=== PATIENT | female | born 1965 | race Caucasian/White ===

== ENCOUNTER → 2018-04-29 | Outpatient (CLI) | payer BC ==
--- NOTE | 2018-04-30 09:16 | RAD ---
Chest radiograph 04/29/2018 5:38 PM INDICATION: Cough for several weeks COMPARISON: Chest radiograph February 24, 2014 TECHNIQUE: Frontal and lateral views of the chest are provided. FINDINGS: The cardiomediastinal silhouette is within normal limits. There are no pleural effusions. There is no pulmonary vascular congestion. There is no pneumothorax. The lungs are clear. Dextroconvex scoliosis of the thoracic spine is noted. IMPRESSION: No acute cardiopulmonary process. Electronically signed by: Malissa Gonzalez MD (04/30/2018 9:12 AM) [facility]
== END | disposition home or self-care (01) ==
LOC: RAD 17:27
PROVIDERS: ATTEND Family Medicine
DX: M41.84 Other forms of scoliosis, thoracic region (principal)
CPT/HCPCS: 71046

== ENCOUNTER → 2021-02-06 | Outpatient (CLI) | payer BC, OTHER ==
--- NOTE | 2021-02-06 10:45 | RAD ---
INDICATION: Screening for osteopenia/osteoporosis. Postmenopausal evaluation. COMPARISON: None. TECHNIQUE: Bone densitometry was performed through the lumbar spine and proximal femur. IMPRESSION: Lumbar Spine: BMD: 1.29 T-Score: 0.9 Range: 1.1 Proximal Femur: BMD: 0.95 T-Score: -0.1 Range: Normal World Health Organization Criteria for Bone Density: T-Score: > -1.0: Normal Range < -1.0 to -2.5: Osteopenic Range < -2.5: Osteoporotic Range Electronically signed by: Edwin Wan MD (02/06/2021 10:43 AM) [id number]
--- NOTE | 2021-02-08 18:18 | RAD ---
DATE: 02/06/2021 EXAM: MAMMO CK SCREENING BILATERAL HISTORY: Screening COMPARISON: 09/27/2015 This study was interpreted with the benefit of Computerized Aided Detection (CAD). Breast Density: SCATTERED The breast parenchyma shows scattered fibroglandular densities. Breast parenchyma level B. FINDINGS: An asymmetry in the left breast along the posterior nipple line on MLO view is stable from 2015. No mass, suspicious calcification, or architectural distortion in either breast.. IMPRESSION: No evidence of malignancy. BI-RADS CATEGORY: 1 NEGATIVE RECOMMENDED FOLLOW-UP: 12M 12 MONTH FOLLOW-UP PQRS compliance statement: Patient information was entered into a reminder system with a target due date for the next mammogram. Mammography is a sensitive method for finding small breast cancers, but it does not detect them all and is not a substitute for careful clinical examination. A negative mammogram does not negate a clinically suspicious finding and should not result in delay in biopsying a clinically suspicious abnormality. "Our facility is accredited by the [employer] Mammography Program."
== END ==
LOC: MAMMO 09:07
PROVIDERS: ATTEND Physician Assistant Medical
DX: Z12.31 Encounter for screening mammogram for malignant neoplasm of breast (principal); Z78.0 Asymptomatic menopausal state
CPT/HCPCS: 77063; 77067; 77080